=== PATIENT | female | born 1985 | race African-American/Black ===

== ENCOUNTER 2016-06-17 18:44 | Inpatient (IN) | payer MEDICAID ==
[~2016-06-17] VITALS: Ht 162.6 cm; Wt 63.5 kg
[2016-06-17 18:57] VITALS: BP 116/69
--- NOTE | 2016-06-17 19:23 | Emergency Room Report ---
History of Present Illness General Chief Complaint: Generalized Weakness Source: Patient, EMS Present Illness HPI Patient presents with complaints of lightheadedness and possible syncopal episode Patient reports that she has had history of anemia had transfusion last time in July She was in [facility] Apparently she reports that it was taking too long to be seen And therefore left the hospital and reports that she felt lightheaded and was brought to our emergency room Denies any chest pain at this time denies any back or flank pain Patient reports that she has a specialist but is not sure of the reason for her anemia Allergies: Coded Allergies: No Known Allergies (Unverified , 06/17/16) Patient History Past Medical History: see triage record Pertinent Family History: none Last Menstrual Period: EARLIER THIS MONTH Now: No Reviewed Nursing Documentation: PMH: Agreed, PSxH: Agreed Nursing Documentation-PM Past Medical History: No Stated History Review of Systems All Other Systems: negative except mentioned in HPI Physical Exam Vital Signs Date Time Temp Pulse Resp B/P Pulse Ox O2 Delivery O2 Flow Rate FiO2 06/17/16 18:40 98.1 100 18 121/72 99 Room Air Sp02 EP Interpretation: reviewed, normal General Appearance: well appearing, no apparent distress Head: normocephalic, atraumatic Eyes: bilateral eye EOMI, bilateral eye PERRL, bilateral eye other - Pale conjunctiva ENT: hearing grossly normal, normal pharynx, TMs + canals normal, uvula midline Neck: full range of motion, supple, no meningismus, no bony tend Respiratory: lungs clear, normal breath sounds, no rhonchi, no respiratory distress, no retraction, no accessory muscle use Cardiovascular #1: normal peripheral pulses, regular rate, rhythm, no edema, no gallop, no JVD, no murmur Gastrointestinal: normal bowel sounds, non tender, soft, no mass, no organomegaly, non-distended, no guarding, no hernia, no pulsatile mass, no rebound Genitourinary: no CVA tenderness Musculoskeletal: normal inspection Neurologic: oriented x3, responsive, 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, motor strength/ tone normal, sensory intact Psychiatric: mood/affect normal Skin: warm/dry, palpation normal, pallor Lymphatic: normal inspection, no adenopathy Medical Decision Making Diagnostic Impression: Primary Impression: Symptomatic anemia ER Course Patient is a fairly complex patient with multiple differential to consideration including but not limited to cardiac cardiopulmonary and vascular emergencies Patient's hemoglobin count does come back low Patient has reported previously that she has antibodies and is difficult to cross and match before this was initiated fairly early Given the low hemoglobin patient is stable for transfer and admitted for further inpatient care Labs Test 06/17/16 19:09 06/17/16 19:45 06/18/16 05:10 White Blood Count 9.0 K/UL (4.8-10.8) 9.2 K/UL (4.8-10.8) Red Blood Count 3.90 M/UL (4.20-5.40) 3.72 M/UL (4.20-5.40) Hemoglobin 6.1 G/DL (12.0-16.0) 5.4 G/DL (12.0-16.0) Hematocrit 22.2 % (37.0-47.0) 21.1 % (37.0-47.0) Mean Corpuscular Volume 57 FL (80-99) 57 FL (80-99) Mean Corpuscular Hemoglobin 15.6 PG (27.0-31.0) 14.6 PG (27.0-31.0) Mean Corpuscular Hemoglobin Concent 27.4 G/DL (32.0-36.0) 25.7 G/DL (32.0-36.0) Red Cell Distribution Width 17.1 % (11.6-14.8) 16.8 % (11.6-14.8) Platelet Count 305 K/UL (150-450) 310 K/UL (150-450) Mean Platelet Volume 7.5 FL (6.5-10.1) 8.6 FL (6.5-10.1) Neutrophils (%) (Auto) % (45.0-75.0) % (45.0-75.0) Lymphocytes (%) (Auto) % (20.0-45.0) % (20.0-45.0) Monocytes (%) (Auto) % (1.0-10.0) % (1.0-10.0) Eosinophils (%) (Auto) % (0.0-3.0) % (0.0-3.0) Basophils (%) (Auto) % (0.0-2.0) % (0.0-2.0) Differential Total Cells Counted 100 100 Neutrophils % (Manual) 76 % (45-75) 72 % (45-75) Lymphocytes % (Manual) 16 % (20-45) 23 % (20-45) Monocytes % (Manual) 5 % (1-10) 5 % (1-10) Eosinophils % (Manual) 3 % (0-3) 0 % (0-3) Basophils % (Manual) 0 % (0-2) 0 % (0-2) Band Neutrophils 0 % (0-8) 0 % (0-8) Nucleated Red Blood Cells 1 /100 WBC Platelet Estimate Adequate Adequate Platelet Morphology Normal Normal Polychromasia 2+ 2+ Hypochromasia 3+ 4+ Anisocytosis 2+ 1+ Microcytosis 3+ 4+ Prothrombin Time 10.6 SEC (9.30-11.50) 11.2 SEC (9.30-11.50) Prothromb Time International Ratio 1.0 (0.9-1.1) 1.1 (0.9-1.1) Activated Partial Thromboplast Time 23 SEC (23-33) 25 SEC (23-33) Sodium Level 136 mEQ/L (135-145) 137 mEQ/L (135-145) Potassium Level 3.8 mEQ/L (3.4-4.9) 3.2 mEQ/L (3.4-4.9) Chloride Level 96 mEQ/L (98-107) 98 mEQ/L (98-107) Carbon Dioxide Level 24 mEQ/L (20-30) 24 mEQ/L (20-30) Anion Gap 16 (5-15) 15 (5-15) Blood Urea Nitrogen 8 mg/dL (7-23) 7 mg/dL (7-23) Creatinine 0.7 mg/dL (0.5-0.9) 0.7 mg/dL (0.5-0.9) Estimat Glomerular Filtration Rate > 60 mL/min (>60) > 60 mL/min (>60) Glucose Level 94 mg/dL (74-106) 115 mg/dL (74-106) Calcium Level 9.2 mg/dL (8.6-10.2) 8.9 mg/dL (8.6-10.2) Total Bilirubin 0.4 mg/dL (0.0-1.2) 0.5 mg/dL (0.0-1.2) Aspartate Amino Transf (AST/SGOT) 11 U/L (5-40) 9 U/L (5-40) Alanine Aminotransferase (ALT/SGPT) 6 U/L (3-33) 6 U/L (3-33) Alkaline Phosphatase 31 U/L (35-104) 30 U/L (35-104) Total Creatine Kinase 45 U/L (26-140) Creatine Kinase MB < 1.5 ng/mL (< 3.8) Creatine Kinase MB Relative Index 3.3 Troponin I < 0.30 ng/mL (<=0.30) Total Protein 7.3 g/dL (6.6-8.7) 6.7 g/dL (6.6-8.7) Albumin 4.3 g/dL (3.5-5.2) 3.8 g/dL (3.5-5.2) Globulin 3.0 g/dL 2.9 g/dL Albumin/Globulin Ratio 1.4 (1.0-2.7) 1.3 (1.0-2.7) Urine HCG, Qualitative Negative Urine Opiates Screen Negative (NEGATIVE) Urine Barbiturates Screen Negative (NEGATIVE) Phencyclidine (PCP) Screen Negative (NEGATIVE) Urine Amphetamines Screen Negative (NEGATIVE) Urine Benzodiazepines Screen Negative (NEGATIVE) Urine Cocaine Screen Negative (NEGATIVE) Urine Marijuana (THC) Screen Positive (NEGATIVE) Erythrocyte Sedimentation Rate 20 MM/HR (0-20) Reticulocyte Count 2.4 % (0.0-2.0) Iron Level 14 ug/dL (37-145) Total Iron Binding Capacity 327 ug/dL (250-400) Percent Iron Saturation 4 % (15-50) Unsaturated Iron Binding 313 ug/dL (112-346) Lactate Dehydrogenase 134 U/L (135-230) Carcinoembryonic Antigen 0.7 ng/mL Vitamin B12 Level 126 pg/mL (211-946) Thyroid Stimulating Hormone (TSH) 1.030 uIU/mL (0.300-4.500) EKG Diagnostic Results Rate: normal Rhythm: NSR ST Segments: no acute changes Rhythm Strip Diag. Results EP Interpretation: yes Rate: 66 Rhythm: NSR, no PVC's, no ectopy Last Vital Signs Date Time Temp Pulse Resp B/P Pulse Ox O2 Delivery O2 Flow Rate FiO2 06/17/16 18:57 98.1 97 17 116/69 100 Room Air Status: improved Disposition: ADMITTED INPATIENT Condition: Serious ABBE TATE D.O. Jun 17, 2016 19:23
[2016-06-17 19:24] LABS: MEAN CORPUSCULAR HEMOGLOBIN 15.6 PG (27.0-31.0); MEAN CORPUSCULAR HGB CONC 27.4 G/DL (32.0-36.0); MEAN CORPUSCULAR VOLUME 57 FL (80-99); MEAN PLATELET VOLUME 7.5 FL (6.5-10.1); PLATELET COUNT 305 K/UL (150-450); RED CELL DISTRIBUTION WIDTH 17.1 % (11.6-14.8)
[2016-06-17 19:40] LABS: PROTHROMBIN TIME 10.6 SEC (9.30-11.50)
[2016-06-17 19:43] LABS: TROPONIN I < 0.30 ng/mL (<=0.30)
[2016-06-17 19:44] LABS: ALANINE AMINOTRANSFERASE 6 U/L (3-33); ALBUMIN/GLOBULIN RATIO 1.4 (1.0-2.7); ANION GAP 16 (5-15); ASPARTATE AMINO TRANSFERASE 11 U/L (5-40); CALCIUM 9.2 mg/dL (8.6-10.2); CARBON DIOXIDE 24 mEQ/L (20-30); CHLORIDE 96 mEQ/L (98-107); CREATININE 0.7 mg/dL (0.5-0.9); GLOMERULAR FILTRATION RATE > 60 mL/min (>60); HEMOLYSIS 1; POTASSIUM 3.8 mEQ/L (3.4-4.9); SODIUM 136 mEQ/L (135-145); TOTAL PROTEIN 7.3 g/dL (6.6-8.7)
[2016-06-17 19:51] LABS: CKMB < 1.5 ng/mL (< 3.8)
[2016-06-17 20:36] LABS: EOSINOPHILS % (MANUAL) 3 % (0-3); LYMPHOCYTES % (MANUAL) 16 % (20-45); NEUTROPHILS % (MANUAL) 76 % (45-75); NUCLEATED RED BLOOD CELLS 1 /100 WBC; TOTAL CELLS COUNTED 100
[2016-06-17 20:38] LABS: ANISOCYTOSIS 2+; BAND NEUTROPHILS % (MANUAL) 0 % (0-8); BASOPHILS % (MANUAL) 0 % (0-2); HYPOCHROMASIA 3+; MICROCYTES 3+; PLATELET ESTIMATE ADEQUATE; PLATELET MORPHOLOGY NORMAL; POLYCHROMASIA 2+
[2016-06-17 20:57] VITALS: BP 98/65
[2016-06-17] MEDS ORDERED: Morphine Sulfate 2mg/ml Inj IVP PRN (22:30)
[2016-06-17] MEDS ORDERED: Mylanta II UD 30ml ORAL PRN (22:30)
[2016-06-17] MEDS ORDERED: LORazepam Inj 2mg/ml 1ml IV PRN (22:30)
[2016-06-17] MEDS ORDERED: Zolpidem 5mg tab ORAL PRN (22:30)
[2016-06-17] MEDS ORDERED: Miralax 17gm pkt ORAL PRN (22:30)
[2016-06-17] MEDS ORDERED: IBUPROFEN600 MG ORAL (22:52)
[2016-06-17 22:57] VITALS: BP 102/69
[2016-06-18] VITALS (12 sets, daily range): BP systolic 2–112; BP diastolic 42–77
[2016-06-18 07:05] LABS: INR 1.1 (0.9-1.1); PROTHROMBIN TIME 11.2 SEC (9.30-11.50)
[2016-06-18 07:16] LABS: ALANINE AMINOTRANSFERASE 6 U/L (3-33); ALBUMIN/GLOBULIN RATIO 1.3 (1.0-2.7); ANION GAP 15 (5-15); ASPARTATE AMINO TRANSFERASE 9 U/L (5-40); CALCIUM 8.9 mg/dL (8.6-10.2); CARBON DIOXIDE 24 mEQ/L (20-30); CHLORIDE 98 mEQ/L (98-107); CREATININE 0.7 mg/dL (0.5-0.9); GLOMERULAR FILTRATION RATE > 60 mL/min (>60); HEMOLYSIS 0; POTASSIUM 3.2 mEQ/L (3.4-4.9); SODIUM 137 mEQ/L (135-145); TOTAL PROTEIN 6.7 g/dL (6.6-8.7)
[2016-06-18 07:24] LABS: MEAN CORPUSCULAR HEMOGLOBIN 14.6 PG (27.0-31.0); MEAN CORPUSCULAR HGB CONC 25.7 G/DL (32.0-36.0); MEAN CORPUSCULAR VOLUME 57 FL (80-99); MEAN PLATELET VOLUME 8.6 FL (6.5-10.1); PLATELET COUNT 310 K/UL (150-450); RED BLOOD COUNT 3.72 M/UL (4.20-5.40); RED CELL DISTRIBUTION WIDTH 16.8 % (11.6-14.8); WHITE BLOOD COUNT 9.2 K/UL (4.8-10.8)
[2016-06-18 10:27] LABS: ANISOCYTOSIS 1+; BAND NEUTROPHILS % (MANUAL) 0 % (0-8); BASOPHILS % (MANUAL) 0 % (0-2); EOSINOPHILS % (MANUAL) 0 % (0-3); HYPOCHROMASIA 4+; LYMPHOCYTES % (MANUAL) 23 % (20-45); MICROCYTES 4+; NEUTROPHILS % (MANUAL) 72 % (45-75); PLATELET ESTIMATE ADEQUATE; TOTAL CELLS COUNTED 100
[2016-06-18 10:28] LABS: PLATELET MORPHOLOGY NORMAL; POLYCHROMASIA 2+
[2016-06-18 11:53] LABS: ERYTHROCYTE SEDIMENTATION RATE 20 MM/HR (0-20); PATH BLOOD SMEAR/OMC SENT TO PATHOLOGIST
[2016-06-18 11:54] LABS: RETICULOCYTE COUNT 2.4 % (0.0-2.0)
[2016-06-18] MEDS ORDERED: DiphenhydrAMINE 50mg/ml Inj IVP PRN (14:30)
--- NOTE | 2016-06-18 16:18 | History and Physical ---
History of Present Illness General Date patient seen: Jun 18, 2016 Reason for Hospitalization: Generalized Weakness Present Illness HPI 31 year old female with hx of chronic anemia presented to ER with complaints of lightheadedness and possible syncopal episode Denies any chest pain at this time denies any back or flank pain Hem Hem was 5. she is admitted for symptomatic anemia Allergies: Coded Allergies: No Known Allergies (Unverified , 06/17/16) Medication History Scheduled Ibuprofen* (Motrin*), Unknown Dose ORAL THREE TIMES A DAY, (Reported) Patient History Healthcare decision maker pt alert and oriented x4 Resuscitation status Full Code Advanced Directive on File Review of Systems All Other Systems: negative except mentioned in HPI Physical Exam General Appearance: WD/WN, no apparent distress Lines, tubes and drains: peripheral HEENT: normocephalic, atraumatic Neck: non-tender, normal alignment Respiratory/Chest: chest wall non-tender, normal breath sounds Cardiovascular/Chest: normal rate Abdomen: normal bowel sounds, non tender Genitourinary/Rectal: normal rectal exam Last 24 Hour Vital Signs Date Time Temp Pulse Resp B/P Pulse Ox O2 Delivery O2 Flow Rate FiO2 06/18/16 13:30 98.1 06/18/16 11:55 98.1 91 19 97/57 99 Room Air 06/18/16 08:01 98.1 71 19 98/59 95 Room Air 06/18/16 04:00 99.5 69 18 83/42 95 Room Air 06/18/16 03:26 98.1 06/18/16 01:49 98.1 109 20 91/57 100 Room Air 06/18/16 01:12 98.1 108 17 112/60 100 Room Air 06/18/16 00:57 98.0 108 17 112/60 100 Room Air 06/17/16 22:57 98.0 105 17 102/69 100 Room Air 06/17/16 20:57 98.1 101 19 98/65 100 Room Air 06/17/16 18:57 98.1 97 17 116/69 100 Room Air 06/17/16 18:40 98.1 100 18 121/72 99 Room Air Laboratory Tests Test 06/17/16 19:09 06/17/16 19:45 06/18/16 05:10 White Blood Count 9.0 K/UL (4.8-10.8) 9.2 K/UL (4.8-10.8) Red Blood Count 3.90 M/UL (4.20-5.40) L 3.72 M/UL (4.20-5.40) L Hemoglobin 6.1 G/DL (12.0-16.0) *L 5.4 G/DL (12.0-16.0) *L Hematocrit 22.2 % (37.0-47.0) L 21.1 % (37.0-47.0) L Mean Corpuscular Volume 57 FL (80-99) L 57 FL (80-99) L Mean Corpuscular Hemoglobin 15.6 PG (27.0-31.0) L 14.6 PG (27.0-31.0) L Mean Corpuscular Hemoglobin Concent 27.4 G/DL (32.0-36.0) L 25.7 G/DL (32.0-36.0) L Red Cell Distribution Width 17.1 % (11.6-14.8) H 16.8 % (11.6-14.8) H Platelet Count 305 K/UL (150-450) 310 K/UL (150-450) Mean Platelet Volume 7.5 FL (6.5-10.1) 8.6 FL (6.5-10.1) Neutrophils (%) (Auto) % (45.0-75.0) % (45.0-75.0) Lymphocytes (%) (Auto) % (20.0-45.0) % (20.0-45.0) Monocytes (%) (Auto) % (1.0-10.0) % (1.0-10.0) Eosinophils (%) (Auto) % (0.0-3.0) % (0.0-3.0) Basophils (%) (Auto) % (0.0-2.0) % (0.0-2.0) Differential Total Cells Counted 100 100 Neutrophils % (Manual) 76 % (45-75) H 72 % (45-75) Lymphocytes % (Manual) 16 % (20-45) L 23 % (20-45) Monocytes % (Manual) 5 % (1-10) 5 % (1-10) Eosinophils % (Manual) 3 % (0-3) 0 % (0-3) Basophils % (Manual) 0 % (0-2) 0 % (0-2) Band Neutrophils 0 % (0-8) 0 % (0-8) Nucleated Red Blood Cells 1 /100 WBC Platelet Estimate Adequate Adequate Platelet Morphology Normal Normal Polychromasia 2+ 2+ Hypochromasia 3+ 4+ Anisocytosis 2+ 1+ Microcytosis 3+ 4+ Prothrombin Time 10.6 SEC (9.30-11.50) 11.2 SEC (9.30-11.50) Prothromb Time International Ratio 1.0 (0.9-1.1) 1.1 (0.9-1.1) Activated Partial Thromboplast Time 23 SEC (23-33) 25 SEC (23-33) Sodium Level 136 mEQ/L (135-145) 137 mEQ/L (135-145) Potassium Level 3.8 mEQ/L (3.4-4.9) 3.2 mEQ/L (3.4-4.9) L Chloride Level 96 mEQ/L (98-107) L 98 mEQ/L (98-107) Carbon Dioxide Level 24 mEQ/L (20-30) 24 mEQ/L (20-30) Anion Gap 16 (5-15) H 15 (5-15) Blood Urea Nitrogen 8 mg/dL (7-23) 7 mg/dL (7-23) Creatinine 0.7 mg/dL (0.5-0.9) 0.7 mg/dL (0.5-0.9) Estimat Glomerular Filtration Rate > 60 mL/min (>60) > 60 mL/min (>60) Glucose Level 94 mg/dL (74-106) 115 mg/dL (74-106) H Calcium Level 9.2 mg/dL (8.6-10.2) 8.9 mg/dL (8.6-10.2) Total Bilirubin 0.4 mg/dL (0.0-1.2) 0.5 mg/dL (0.0-1.2) Aspartate Amino Transf (AST/SGOT) 11 U/L (5-40) 9 U/L (5-40) Alanine Aminotransferase (ALT/SGPT) 6 U/L (3-33) 6 U/L (3-33) Alkaline Phosphatase 31 U/L (35-104) L 30 U/L (35-104) L Total Creatine Kinase 45 U/L (26-140) Creatine Kinase MB < 1.5 ng/mL (< 3.8) Creatine Kinase MB Relative Index 3.3 Troponin I < 0.30 ng/mL (<=0.30) Total Protein 7.3 g/dL (6.6-8.7) 6.7 g/dL (6.6-8.7) Albumin 4.3 g/dL (3.5-5.2) 3.8 g/dL (3.5-5.2) Globulin 3.0 g/dL 2.9 g/dL Albumin/Globulin Ratio 1.4 (1.0-2.7) 1.3 (1.0-2.7) Urine HCG, Qualitative Negative Urine Opiates Screen Negative (NEGATIVE) Urine Barbiturates Screen Negative (NEGATIVE) Phencyclidine (PCP) Screen Negative (NEGATIVE) Urine Amphetamines Screen Negative (NEGATIVE) Urine Benzodiazepines Screen Negative (NEGATIVE) Urine Cocaine Screen Negative (NEGATIVE) Urine Marijuana (THC) Screen Positive (NEGATIVE) H Erythrocyte Sedimentation Rate 20 MM/HR (0-20) Reticulocyte Count 2.4 % (0.0-2.0) H Iron Level 14 ug/dL (37-145) L Total Iron Binding Capacity 327 ug/dL (250-400) Percent Iron Saturation 4 % (15-50) L Unsaturated Iron Binding 313 ug/dL (112-346) Lactate Dehydrogenase 134 U/L (135-230) L Carcinoembryonic Antigen 0.7 ng/mL Vitamin B12 Level 126 pg/mL (211-946) L Folate Pending Thyroid Stimulating Hormone (TSH) 1.030 uIU/mL (0.300-4.500) Height (Feet): 5 Height (Inches): 4.00 Weight (Pounds): 140 Medications Current Medications Medications (Trade) Dose Ordered Sig/Nata Route PRN Reason Start Time Stop Time Status Last Admin Dose Admin Acetaminophen (Tylenol) 650 mg Q4H PRN ORAL Fever>100.5/Headache/Mild Pain 06/18/16 14:03 07/18/16 14:02 Al Hydroxide/Mg Hydroxide (Mylanta II) 30 ml Q6H PRN ORAL dyspepsia 06/17/16 22:30 07/17/16 22:29 Dextrose (Dextrose 50%) STAT PRN IV Hypoglycemia 06/17/16 22:30 07/17/16 22:29 Diphenhydramine HCl (Benadryl) 25 mg Q6H PRN IVP Itching 06/18/16 14:30 07/18/16 14:29 Lorazepam (Ativan 2mg/ml 1ml) 0.5 mg Q4H PRN IV For Anxiety 06/17/16 22:30 06/24/16 22:29 Morphine Sulfate (Morphine Sulfate) 1 mg Q4H PRN IVP For Pain 06/17/16 22:30 06/24/16 22:29 06/18/16 12:48 Ondansetron HCl (Zofran) 4 mg Q6H PRN IVP Nausea & Vomiting 06/17/16 22:30 07/17/16 22:29 Polyethylene Glycol (Miralax) 17 gm HSPRN PRN ORAL Constipation 06/17/16 22:30 07/17/16 22:29 Zolpidem Tartrate (Ambien) 5 mg HSPRN PRN ORAL Insomnia 06/17/16 22:30 07/17/16 22:29 Assessment/Plan Problem List: (1) Symptomatic anemia ICD Codes: D64.9 - Anemia, unspecified SNOMED: 524073304 Assessment/Plan prbc of 3 untis iron studies. RUBÉN ROY Jun 18, 2016 16:18
[2016-06-18] MEDS: Docusate 100mg tablet ORAL SCH (17:44)
[2016-06-18] MEDS: Lactulose 20gm/30ml UDC ORAL SCH (17:45)
[2016-06-18] MEDS ORDERED: Iron Sucrose 100 MG in NS 55 ML IVPB SCH (21:00)
[2016-06-18] MEDS ORDERED: Miralax 17gm pkt ORAL SCH (21:00)
[2016-06-19] VITALS: BP 108/64
[2016-06-19 04:00] VITALS: BP 111/58
[2016-06-19 08:26] VITALS: BP 101/66
[2016-06-19] MEDS: Lactulose 20gm/30ml UDC ORAL SCH ×3 (08:37→18:00)
[2016-06-19] MEDS: Docusate 100mg tablet ORAL SCH ×3 (08:37→18:00)
--- NOTE | 2016-06-19 09:18 | Consultation ---
Consult Note Consult Note HEMATOLOGY CONSULTATION NOTE DOS: 06/18/16 REASON FOR CONSULT: ANEMIA EVAL REQUESTING MD: KIRILL BERRIOS Mrs. Roxanne Ca is a pleasant 31 year old female with hx of chronic anemia presented to ER with complaints of lightheadedness and possible syncopal episode. She was recently admitted to [facility] and saw Dr. Browne ( hematology) there and was transfused with blood. It took too long to be seen and therefore she transferred to [facility] for further evaluation and management. She denies any chest pain at this time denies any back or flank pain. Her hgb was 5.4 and hematology was consulted. She was begun on iv iron and a iron w/u pending Coded Allergies: No Known Allergies (Unverified , 06/17/16) Past Medical hx: recurrent anemia Medications: Ibuprofen* (Motrin*), Unknown Dose ORAL THREE TIMES A DAY, (Reported) Review of systems: negative except as noted above PE: General: WD/WN, no apparent distress Lines, tubes and drains: peripheral HEENT: normocephalic, atraumatic Neck: non-tender, normal alignment Respiratory/Chest: chest wall non-tender, normal breath sounds Cardiovascular/Chest: normal rate Abdomen: normal bowel sounds, non tender Genitourinary/Rectal: normal rectal exam Last 24 Hour Vital Signs Date Time Temp Pulse Resp B/P Pulse Ox O2 Delivery O2 Flow Rate FiO2 06/18/16 13:30 98.1 06/18/16 11:55 98.1 91 19 97/57 99 Room Air 06/18/16 08:01 98.1 71 19 98/59 95 Room Air 06/18/16 04:00 99.5 69 18 83/42 95 Room Air 06/18/16 03:26 98.1 06/18/16 01:49 98.1 109 20 91/57 100 Room Air 06/18/16 01:12 98.1 108 17 112/60 100 Room Air 06/18/16 00:57 98.0 108 17 112/60 100 Room Air 06/17/16 22:57 98.0 105 17 102/69 100 Room Air 06/17/16 20:57 98.1 101 19 98/65 100 Room Air 06/17/16 18:57 98.1 97 17 116/69 100 Room Air 06/17/16 18:40 98.1 100 18 121/72 99 Room Air Laboratory Tests Test 06/17/16 19:09 06/17/16 19:45 06/18/16 05:10 White Blood Count 9.0 K/UL (4.8-10.8) 9.2 K/UL (4.8-10.8) Red Blood Count 3.90 M/UL (4.20-5.40) L 3.72 M/UL (4.20-5.40) L Hemoglobin 6.1 G/DL (12.0-16.0) *L 5.4 G/DL (12.0-16.0) *L Hematocrit 22.2 % (37.0-47.0) L 21.1 % (37.0-47.0) L Mean Corpuscular Volume 57 FL (80-99) L 57 FL (80-99) L Mean Corpuscular Hemoglobin 15.6 PG (27.0-31.0) L 14.6 PG (27.0-31.0) L Mean Corpuscular Hemoglobin Concent 27.4 G/DL (32.0-36.0) L 25.7 G/DL (32.0-36.0) L Red Cell Distribution Width 17.1 % (11.6-14.8) H 16.8 % (11.6-14.8) H Platelet Count 305 K/UL (150-450) 310 K/UL (150-450) Mean Platelet Volume 7.5 FL (6.5-10.1) 8.6 FL (6.5-10.1) Neutrophils (%) (Auto) % (45.0-75.0) % (45.0-75.0) Lymphocytes (%) (Auto) % (20.0-45.0) % (20.0-45.0) Monocytes (%) (Auto) % (1.0-10.0) % (1.0-10.0) Eosinophils (%) (Auto) % (0.0-3.0) % (0.0-3.0) Basophils (%) (Auto) % (0.0-2.0) % (0.0-2.0) Differential Total Cells Counted 100 100 Neutrophils % (Manual) 76 % (45-75) H 72 % (45-75) Lymphocytes % (Manual) 16 % (20-45) L 23 % (20-45) Monocytes % (Manual) 5 % (1-10) 5 % (1-10) Eosinophils % (Manual) 3 % (0-3) 0 % (0-3) Basophils % (Manual) 0 % (0-2) 0 % (0-2) Band Neutrophils 0 % (0-8) 0 % (0-8) Nucleated Red Blood Cells 1 /100 WBC Platelet Estimate Adequate Adequate Platelet Morphology Normal Normal Polychromasia 2+ 2+ Hypochromasia 3+ 4+ Anisocytosis 2+ 1+ Microcytosis 3+ 4+ Prothrombin Time 10.6 SEC (9.30-11.50) 11.2 SEC (9.30-11.50) Prothromb Time International Ratio 1.0 (0.9-1.1) 1.1 (0.9-1.1) Activated Partial Thromboplast Time 23 SEC (23-33) 25 SEC (23-33) Sodium Level 136 mEQ/L (135-145) 137 mEQ/L (135-145) Potassium Level 3.8 mEQ/L (3.4-4.9) 3.2 mEQ/L (3.4-4.9) L Chloride Level 96 mEQ/L (98-107) L 98 mEQ/L (98-107) Carbon Dioxide Level 24 mEQ/L (20-30) 24 mEQ/L (20-30) Anion Gap 16 (5-15) H 15 (5-15) Blood Urea Nitrogen 8 mg/dL (7-23) 7 mg/dL (7-23) Creatinine 0.7 mg/dL (0.5-0.9) 0.7 mg/dL (0.5-0.9) Estimat Glomerular Filtration Rate > 60 mL/min (>60) > 60 mL/min (>60) Glucose Level 94 mg/dL (74-106) 115 mg/dL (74-106) H Calcium Level 9.2 mg/dL (8.6-10.2) 8.9 mg/dL (8.6-10.2) Total Bilirubin 0.4 mg/dL (0.0-1.2) 0.5 mg/dL (0.0-1.2) Aspartate Amino Transf (AST/SGOT) 11 U/L (5-40) 9 U/L (5-40) Alanine Aminotransferase (ALT/SGPT) 6 U/L (3-33) 6 U/L (3-33) Alkaline Phosphatase 31 U/L (35-104) L 30 U/L (35-104) L Total Creatine Kinase 45 U/L (26-140) Creatine Kinase MB < 1.5 ng/mL (< 3.8) Creatine Kinase MB Relative Index 3.3 Troponin I < 0.30 ng/mL (<=0.30) Total Protein 7.3 g/dL (6.6-8.7) 6.7 g/dL (6.6-8.7) Albumin 4.3 g/dL (3.5-5.2) 3.8 g/dL (3.5-5.2) Globulin 3.0 g/dL 2.9 g/dL Albumin/Globulin Ratio 1.4 (1.0-2.7) 1.3 (1.0-2.7) Urine HCG, Qualitative Negative Urine Opiates Screen Negative (NEGATIVE) Urine Barbiturates Screen Negative (NEGATIVE) Phencyclidine (PCP) Screen Negative (NEGATIVE) Urine Amphetamines Screen Negative (NEGATIVE) Urine Benzodiazepines Screen Negative (NEGATIVE) Urine Cocaine Screen Negative (NEGATIVE) Urine Marijuana (THC) Screen Positive (NEGATIVE) H Erythrocyte Sedimentation Rate 20 MM/HR (0-20) Reticulocyte Count 2.4 % (0.0-2.0) H Iron Level 14 ug/dL (37-145) L Total Iron Binding Capacity 327 ug/dL (250-400) Percent Iron Saturation 4 % (15-50) L Unsaturated Iron Binding 313 ug/dL (112-346) Lactate Dehydrogenase 134 U/L (135-230) L Carcinoembryonic Antigen 0.7 ng/mL Vitamin B12 Level 126 pg/mL (211-946) L Folate Pending Thyroid Stimulating Hormone (TSH) 1.030 uIU/mL (0.300-4.500) Assessment: # Anemia secondary to iron deficiency - will require iron supplementation and has been started # Anemia secondary to heavy periods/menorrhagia # Anemia secondary to b12 deficiency - has low animal meat intake, have given b12 monthly shot here # Menorrhagia - has not yet been seen by gynecology # Positive marijuana on urine toxicology # Hyperglycemia - could be 2/2 food intake Recs: - Anemia workup has been reviewed - Hgb goal is >7 - Administered b12 IM shot x 1 - Began IV iron - Will need gynecology outpatient followup - US of the uterus sent to eval for fibroids - Appreciate consultation! Romero Roth Jun 19, 2016 09:18
[2016-06-19 09:38] LABS: BASOPHILS % (AUTO) 0.8 % (0.0-2.0); EOSINOPHILS % (AUTO) 3.1 % (0.0-3.0); LYMPHOCYTES % (AUTO) 19.4 % (20.0-45.0); MEAN CORPUSCULAR HEMOGLOBIN 18.6 PG (27.0-31.0); MEAN CORPUSCULAR HGB CONC 28.2 G/DL (32.0-36.0); MEAN CORPUSCULAR VOLUME 66 FL (80-99); MEAN PLATELET VOLUME 7.5 FL (6.5-10.1); MONOCYTES % (AUTO) 13.2 % (1.0-10.0); NEUTROPHILS % (AUTO) 63.5 % (45.0-75.0); PLATELET COUNT 252 K/UL (150-450); RED BLOOD COUNT 4.87 M/UL (4.20-5.40); WHITE BLOOD COUNT 8.6 K/UL (4.8-10.8)
[2016-06-19 09:46] LABS: PROTHROMBIN TIME 10.6 SEC (9.30-11.50)
[2016-06-19 09:53] LABS: ALANINE AMINOTRANSFERASE 8 U/L (3-33); ALBUMIN/GLOBULIN RATIO 1.1 (1.0-2.7); ANION GAP 15 (5-15); ASPARTATE AMINO TRANSFERASE 10 U/L (5-40); CALCIUM 8.8 mg/dL (8.6-10.2); CARBON DIOXIDE 23 mEQ/L (20-30); CHLORIDE 96 mEQ/L (98-107); CREATININE 0.7 mg/dL (0.5-0.9); GLOMERULAR FILTRATION RATE > 60 mL/min (>60); HEMOLYSIS 0; PHOSPHORUS 3.1 mg/dL (2.5-4.8); POTASSIUM 3.9 mEQ/L (3.4-4.9); SODIUM 134 mEQ/L (135-145)
[2016-06-19] MEDS ORDERED: Vitamin B12 1000mcg/ml Inj IM ONE (11:00)
[2016-06-19 12:17] VITALS: BP 98/60
[2016-06-19 15:39] VITALS: BP 97/59
[2016-06-19] MEDS ORDERED: ACETAMINOPHEN325 M1 ORAL (17:06)
[2016-06-19] MEDS ORDERED: Iron Sucrose 100 MG in NS 55 ML IVPB SCH (21:00)
--- NOTE | 2016-06-19 22:12 | Pulmonology Progress Note ---
Assessment/Plan Problems: (1) Symptomatic anemia Subjective Allergies: Coded Allergies: No Known Allergies (Unverified , 06/17/16) Objective Last 24 Hour Vital Signs Date Time Temp Pulse Resp B/P Pulse Ox O2 Delivery O2 Flow Rate FiO2 06/19/16 15:39 98.0 76 19 97/59 100 Room Air 06/19/16 12:17 98.1 74 19 98/60 99 Room Air 06/19/16 08:26 97.9 66 18 101/66 100 Room Air 06/19/16 04:00 98.1 75 18 111/58 99 Room Air 06/19/16 00:00 98.0 78 19 108/64 99 Room Air Intake and Output 06/18/16 06/19/16 19:00 07:00 Intake Total 560 ml 360 ml Balance 560 ml 360 ml Intake Oral 560 ml 360 ml # Voids 4 2 # Bowel Movements 2 1 Laboratory Tests 06/19/16 09:15: White Blood Count 8.6, Red Blood Count 4.87, Hemoglobin 9.1#L, Hematocrit 32.1#L , Mean Corpuscular Volume 66#L, Mean Corpuscular Hemoglobin 18.6L, Mean Corpuscular Hemoglobin Concent 28.2L, Red Cell Distribution Width 26.0H, Platelet Count 252, Mean Platelet Volume 7.5, Neutrophils (%) (Auto) 63.5, Lymphocytes (%) (Auto) 19.4L, Monocytes (%) (Auto) 13.2H, Eosinophils (%) (Auto ) 3.1H, Basophils (%) (Auto) 0.8, Hemoglobin A [Pending], Hemoglobin A2 [Pending ], Hemoglobin C [Pending], Hemoglobin F () [Pending], Hemoglobin S [Pending ], Variant Hemoglobin [Pending], Hemoglobin Electrophoresis Interp [Pending], Hemoglobin Interpretation [Pending], Hemoglobin Solubility [Pending], Prothrombin Time 10.6, Prothromb Time International Ratio 1.0, Activated Partial Thromboplast Time 25, Fibrinogen 424H, Sodium Level 134L, Potassium Level 3.9, Chloride Level 96L, Carbon Dioxide Level 23, Anion Gap 15, Blood Urea Nitrogen 5L, Creatinine 0.7, Estimat Glomerular Filtration Rate > 60, Glucose Level 101, Calcium Level 8.8, Phosphorus Level 3.1, Magnesium Level 2.0 , Total Bilirubin 0.5, Aspartate Amino Transf (AST/SGOT) 10, Alanine Aminotransferase (ALT/SGPT) 8, Alkaline Phosphatase 30L, Total Protein 7.0, Albumin 3.7, Globulin 3.3, Albumin/Globulin Ratio 1.1, Methylmalonic Acid [ Pending], Homocystine [Pending] RUBÉN ROY Jun 19, 2016 22:12
--- NOTE | 2016-06-19 23:49 | General Progress Note ---
Assessment/Plan Assessment/Plan Assessment: # Anemia secondary to iron deficiency - will require iron supplementation and has been started # Anemia secondary to heavy periods/menorrhagia # Anemia secondary to b12 deficiency - has low animal meat intake, have given b12 monthly shot here # Menorrhagia - has not yet been seen by gynecology # Positive marijuana on urine toxicology # Hyperglycemia - could be 2/2 food intake Recs: - Anemia workup has been reviewed- smear wnl - Hgb goal is >7 - Administered b12 IM shot x 1 - Began IV iron - Will need gynecology outpatient followup - US of the uterus sent to eval for fibroids - Appreciate consultation! Subjective Constitutional: Reports: no symptoms HEENT: Reports: no symptoms Cardiovascular: Reports: no symptoms Respiratory: Reports: no symptoms Gastrointestinal/Abdominal: Reports: no symptoms Genitourinary: Reports: no symptoms Neurologic/Psychiatric: Reports: no symptoms Endocrine: Reports: no symptoms Hematologic/Lymphatic: Reports: anemia Allergies: Coded Allergies: No Known Allergies (Unverified , 06/17/16) Subjective NAD, plan to DC and f/u as outpatient for B12 shots Objective Last 24 Hour Vital Signs Date Time Temp Pulse Resp B/P Pulse Ox O2 Delivery O2 Flow Rate FiO2 06/19/16 15:39 98.0 76 19 97/59 100 Room Air 06/19/16 12:17 98.1 74 19 98/60 99 Room Air 06/19/16 08:26 97.9 66 18 101/66 100 Room Air 06/19/16 04:00 98.1 75 18 111/58 99 Room Air 06/19/16 00:00 98.0 78 19 108/64 99 Room Air Intake and Output 06/18/16 06/19/16 19:00 07:00 Intake Total 560 ml 360 ml Balance 560 ml 360 ml Intake Oral 560 ml 360 ml # Voids 4 2 # Bowel Movements 2 1 Laboratory Tests 06/19/16 09:15: White Blood Count 8.6, Red Blood Count 4.87, Hemoglobin 9.1#L, Hematocrit 32.1#L , Mean Corpuscular Volume 66#L, Mean Corpuscular Hemoglobin 18.6L, Mean Corpuscular Hemoglobin Concent 28.2L, Red Cell Distribution Width 26.0H, Platelet Count 252, Mean Platelet Volume 7.5, Neutrophils (%) (Auto) 63.5, Lymphocytes (%) (Auto) 19.4L, Monocytes (%) (Auto) 13.2H, Eosinophils (%) (Auto ) 3.1H, Basophils (%) (Auto) 0.8, Hemoglobin A [Pending], Hemoglobin A2 [Pending ], Hemoglobin C [Pending], Hemoglobin F () [Pending], Hemoglobin S [Pending ], Variant Hemoglobin [Pending], Hemoglobin Electrophoresis Interp [Pending], Hemoglobin Interpretation [Pending], Hemoglobin Solubility [Pending], Prothrombin Time 10.6, Prothromb Time International Ratio 1.0, Activated Partial Thromboplast Time 25, Fibrinogen 424H, Sodium Level 134L, Potassium Level 3.9, Chloride Level 96L, Carbon Dioxide Level 23, Anion Gap 15, Blood Urea Nitrogen 5L, Creatinine 0.7, Estimat Glomerular Filtration Rate > 60, Glucose Level 101, Calcium Level 8.8, Phosphorus Level 3.1, Magnesium Level 2.0 , Total Bilirubin 0.5, Aspartate Amino Transf (AST/SGOT) 10, Alanine Aminotransferase (ALT/SGPT) 8, Alkaline Phosphatase 30L, Total Protein 7.0, Albumin 3.7, Globulin 3.3, Albumin/Globulin Ratio 1.1, Methylmalonic Acid [ Pending], Homocystine [Pending] Height (Feet): 5 Height (Inches): 4.00 Weight (Pounds): 140 General Appearance: WD/WN EENT: PERRL/EOMI Neck: non-tender Cardiovascular: normal peripheral pulses Respiratory/Chest: chest wall non-tender Abdomen: normal bowel sounds Edema: no edema noted Leg (L), no edema noted Leg (R), no edema noted Pedal (L) , no edema noted Pedal (R), no edema noted Generalized Neurologic: aromatherapist II-XII grossly normal Skin: warm/dry Romero Roth Jun 19, 2016 23:49
[2016-06-20 08:12] LABS: HOMOCYSTINE QUANT 21.8 umol/L (0.0-15.0)
[2016-06-20] MEDS ORDERED: Fleet's Mineral Oil Enema RECTAL SCH (09:00)
--- NOTE | 2016-06-20 12:17 | Discharge Summary ---
Discharge Summary Hospital Course Date of Admission Jun 17, 2016 at 21:58 Date of Discharge Jun 19, 2016 at 18:45 Admitting Diagnosis symptomatic anemia YASH Ca is a 31 year old female who was admitted on Jun 17, 2016 at 21:58 for Symptomatic Anemia Hospital Course [id number] Discharge Discharge Disposition Patient was discharged to Home (01) Discharge Diagnoses: Bisi Smith NP Jun 20, 2016 12:17
--- NOTE | 2016-06-20 23:08 | Discharge Summary 2 SIG ---
DATE OF ADMISSION: 06/17/2016 DATE OF DISCHARGE: 06/19/2016 TIGER MACHINE OPERATOR: Romero Roth M.D. BRIEF HOSPITAL COURSE: The patient is a 31-year-old female with history of chronic anemia, who presented to ER complaining of lightheadedness and possible syncopal episode. She was initially in the [facility] and could not wait to be seen, therefore she left and she felt lightheaded and was brought to emergency room. On evaluation, she was found to have anemia. Hemoglobin was 6.1 and hematocrit of 22. EKG was normal sinus rhythm. Dr. Roth was consulted. Unable to start blood transfusion right away secondary to antibodies. Following day, hemoglobin level even went down to 5.4. She received total of two units packed RBC blood transfusion during inpatient stay. She had evidence of iron deficiency anemia and was started on IV iron and was also given vitamin B12 IM secondary to B12 deficiency. She admits to having heavy menstrual periods and was recommended to seek outpatient gynecologic evaluation to evaluate for fibroids. Peripheral smear was within normal. Urine toxicology was positive for marijuana. Hemoglobin level improved. Stool OB was negative. Venous duplex of lower extremity was negative. The patient was then discharged home. Advised to follow up with PMD and Gynecology as outpatient. FINAL DIAGNOSES: 1. Acute severe symptomatic anemia requiring blood transfusion. 2. Anemia secondary to iron deficiency. 3. Anemia secondary to menorrhagia. 4. Anemia secondary to B12 deficiency. 5. Positive marijuana on urine toxicology. 6. Hyperglycemia. Watson Chanel M.D. I have been assigned to dictate discharge summary on this account and I was not involved in the patient's management. Bisi Smith N.P. DR: ASAD JOB#: [id number] CC: FARZAD
--- NOTE | 2016-06-21 17:29 | Diagnostic Imaging Report ---
APPROVED REPORT CPT Code: 28097 Present Symptoms Comments: Abdominal pain BILATERAL: Imaging reveals a patent deep venous system bilaterally. There is no evidence of thrombus within the femoral, popliteal or tibial segments. The greater saphenous veins are also within normal limits. Doppler indicates normal spontaneous flow within these segments.
== END 2016-06-19 18:45 | disposition home or self-care (01) | DRG 663 ==
LOC: EDBD 18:44 → EMR 19:14 → EDBEDREQ 21:32 → 4E 21:58 → EDBEDREQ 23:07
DX: D50.9 Iron deficiency anemia, unspecified (principal); F12.90 Cannabis use, unspecified, uncomplicated; N92.0 Excessive and frequent menstruation with regular cycle; D51.9 Vitamin B12 deficiency anemia, unspecified; R73.9 Hyperglycemia, unspecified
CPT/HCPCS: 36415; 80053; 80300; 81025; 82270; 82378; 82550; 82553; 82607; 82728; 82746; 83020; 83090; 83540; 83550; 83615; 83735; 83921; 84100; 84443; 84484; 85007; 85025; 85044; 85060; 85384; 85610; 85651; 85730; 86850; 86870; 86880; 86900; 86901; 86904; 86920; 93005; 93970; J2405; J8499

== ENCOUNTER 2017-12-27 20:15 | Emergency (ER) | payer MEDICAID ==
[~2017-12-27] VITALS: Ht 162.6 cm; Wt 65.8 kg
[~2017-12-27 20:15] MED LIST: ACETAMINOPHEN325 M1 ORAL; IBUPROFEN600 MG ORAL
[2017-12-27] MEDS ORDERED: FERROUS SULFATE (20:29)
[2017-12-27 20:40] VITALS: BP 112/73
--- NOTE | 2017-12-27 20:45 | Emergency Room Report ---
History of Present Illness General Chief Complaint: Dizziness Source: Patient Present Illness HPI Patient is a 32-year-old female presented after increased dyspnea dizziness and generalized weakness. Patient has reportedly prior history of sickle cell anemia. Patient was noted to have a recent fall with associated lightheadedness. She had previous history of severe anemia which she is followed by Dr. Browne. The patient denies any fever. She reports having a currently been on her menses. She reports having taken ibuprofen for pain. Allergies: Coded Allergies: No Known Allergies (Unverified , 06/17/16) Patient History Past Medical History: see triage record Last Menstrual Period: currently on Now: No Reviewed Nursing Documentation: PMH: Agreed; PSxH: Agreed Nursing Documentation-PMH Hx Neurological Problems: Yes - sickle cell anemia Hx Dizziness: Yes Hx Syncope: Yes Review of Systems All Other Systems: negative except mentioned in HPI Physical Exam Vital Signs Date Time Temp Pulse Resp B/P (MAP) Pulse Ox O2 Delivery O2 Flow Rate FiO2 12/27/17 20:18 98.8 98 16 107/70 100 Room Air Sp02 EP Interpretation: reviewed, normal General Appearance: normal inspection, well appearing, no apparent distress, alert, Chronically Ill Head: atraumatic Eyes: bilateral eye conjunctivae pale ENT: normal ENT inspection, hearing grossly normal, normal voice Neck: normal inspection, full range of motion, supple, no bony tend Respiratory: normal inspection, lungs clear, normal breath sounds, no respiratory distress, no retraction, no wheezing Cardiovascular #1: regular rate, rhythm, no edema Gastrointestinal: normal inspection, normal bowel sounds, non tender, soft, no guarding, no hernia Genitourinary: no CVA tenderness Musculoskeletal: normal inspection, back normal, normal range of motion Neurologic: normal inspection, alert, responsive, speech normal Psychiatric: normal inspection, judgement/insight normal, mood/affect normal Skin: no rash, pallor Medical Decision Making Diagnostic Impression: Primary Impression: Symptomatic anemia ER Course Patient presented for sickle cell pain. Differential diagnosis included but was not limited to have sickle cell pain crisis, aplastic crisis, sequestration , osteomyelitis, acute chest syndrome among others. Because of complexity of patient's case laboratory testing and imaging studies were ordered. The patient was noted to be markedly pale. The patient was consented for blood transfusion.CT of the head read by radiology showed no evidence of acute intracranial hemorrhage. The patient was noted to have a evidence of anemia without any evident evident ischemic changes on EKG. The patient was discussed with Dr. Mendenhall for possible transfer. The patient was endorsed Dr. Gonzalez. Labs Test 12/27/17 21:00 White Blood Count 4.1 K/UL (4.8-10.8) Red Blood Count 3.57 M/UL (4.20-5.40) Hemoglobin 5.4 G/DL (12.0-16.0) Hematocrit 21.2 % (37.0-47.0) Mean Corpuscular Volume 59 FL (80-99) Mean Corpuscular Hemoglobin 15.2 PG (27.0-31.0) Mean Corpuscular Hemoglobin Concent 25.5 G/DL (32.0-36.0) Red Cell Distribution Width 16.2 % (11.6-14.8) Platelet Count 289 K/UL (150-450) Mean Platelet Volume 6.2 FL (6.5-10.1) Neutrophils (%) (Auto) % (45.0-75.0) Lymphocytes (%) (Auto) % (20.0-45.0) Monocytes (%) (Auto) % (1.0-10.0) Eosinophils (%) (Auto) % (0.0-3.0) Basophils (%) (Auto) % (0.0-2.0) Prothrombin Time 10.8 SEC (9.30-11.50) Prothromb Time International Ratio 1.0 (0.9-1.1) Activated Partial Thromboplast Time 27 SEC (23-33) Sodium Level 139 MMOL/L (136-145) Potassium Level 3.7 MMOL/L (3.5-5.1) Chloride Level 107 MMOL/L (98-107) Carbon Dioxide Level 26 MMOL/L (21-32) Anion Gap 6 mmol/L (5-15) Blood Urea Nitrogen 7 mg/dL (7-18) Creatinine 0.7 MG/DL (0.55-1.30) Estimat Glomerular Filtration Rate > 60 mL/min (>60) Glucose Level 97 MG/DL (74-106) Calcium Level 8.5 MG/DL (8.5-10.1) Total Bilirubin 0.2 MG/DL (0.2-1.0) Aspartate Amino Transf (AST/SGOT) 13 U/L (15-37) Alanine Aminotransferase (ALT/SGPT) 12 U/L (12-78) Alkaline Phosphatase 34 U/L (46-116) Total Protein 7.5 G/DL (6.4-8.2) Albumin 3.3 G/DL (3.4-5.0) Globulin 4.2 g/dL Albumin/Globulin Ratio 0.8 (1.0-2.7) Last Vital Signs Date Time Temp Pulse Resp B/P (MAP) Pulse Ox O2 Delivery O2 Flow Rate FiO2 12/27/17 20:18 98.8 98 16 107/70 100 Room Air Status: unchanged Disposition: XFER SHT-TRM HOSP Condition: Serious Referrals: [facility],REFERRING (PCP) Rogelio Cheek MD Dec 27, 2017 20:45
[2017-12-27 21:21] LABS: HEMATOCRIT 21.2 % (37.0-47.0); MEAN CORPUSCULAR VOLUME 59 FL (80-99); PLATELET COUNT 289 K/UL (150-450); RED BLOOD COUNT 3.57 M/UL (4.20-5.40); RED CELL DISTRIBUTION WIDTH 16.2 % (11.6-14.8); WHITE BLOOD COUNT 4.1 K/UL (4.8-10.8)
[2017-12-27 21:40] LABS: ANION GAP 6 mmol/L (5-15); BLOOD UREA NITROGEN 7 mg/dL (7-18); CALCIUM 8.5 MG/DL (8.5-10.1); CARBON DIOXIDE 26 MMOL/L (21-32); CHLORIDE 107 MMOL/L (98-107); CREATININE 0.7 MG/DL (0.55-1.30); POTASSIUM 3.7 MMOL/L (3.5-5.1); SODIUM 139 MMOL/L (136-145)
[2017-12-27 21:44] LABS: ALANINE AMINOTRANSFERASE 12 U/L (12-78); ALBUMIN 3.3 G/DL (3.4-5.0); ALBUMIN/GLOBULIN RATIO 0.8 (1.0-2.7); ALKALINE PHOSPHATASE 34 U/L (46-116); ASPARTATE AMINO TRANSFERASE 13 U/L (15-37); BILIRUBIN,TOTAL 0.2 MG/DL (0.2-1.0)
[2017-12-27 21:46] LABS: HEMOGLOBIN 5.4 G/DL (12.0-16.0)
--- NOTE | 2017-12-27 22:13 | Diagnostic Imaging Report ---
EXAM: CT Head Without Intravenous Contrast CLINICAL HISTORY: PAIN TECHNIQUE: Axial computed tomography images of the head/brain without intravenous contrast. CTDI is 0.15, 70.38 mGy and DLP is 1365 mGy-cm. One or more of the following dose reduction techniques were used: automated exposure control, adjustment of the mA and/or kV according to patient size, use of iterative reconstruction technique. COMPARISON: No relevant prior studies available. FINDINGS: Brain: No acute infarct, hemorrhage, mass or edema. No significant white matter disease. Ventricles: Unremarkable. No ventriculomegaly. Bones/joints: Unremarkable. No acute fracture. Soft tissues: Unremarkable. Sinuses: Mild mucosal thickening in the paranasal sinuses. Mastoid air cells: Unremarkable as visualized. No mastoid effusion. IMPRESSION: No acute findings.
[2017-12-27] MEDS ORDERED: Acetaminophen 500mg (ES) tab ORAL ONE (22:30)
[2017-12-27 22:50] VITALS: BP 108/81
[2017-12-27 23:00] VITALS: BP 110/80
== END 2017-12-27 23:00 | disposition short-term general hospital (02) ==
LOC: EMR 20:35
DX: D64.9 Anemia, unspecified (principal); R42 Dizziness and giddiness; R53.1 Weakness; R06.00 Dyspnea, unspecified
CPT/HCPCS: 36415; 70450; 80053; 85007; 85025; 85610; 85730; 86850; 86870; 86900; 86901; 86920; 93005; 99285